=== PATIENT | female | born 1945 | race Caucasian/White ===

== ENCOUNTER 2019-11-03 23:50 | Inpatient (IN) | payer MEDICARE, OTHER ==
[~2019-11-03] VITALS: Ht 149.9 cm; Wt 94.2 kg
[2019-11-04] VITALS (7 sets, daily range): BP systolic 91–136; BP diastolic 41–68
[2019-11-04] MEDS ORDERED: ONDANSETRON HCL 4 MG/2 ML VIAL IV PRN (00:45)
[2019-11-04] MEDS ORDERED: DEXTROSE (50%) 50ML SYRG IV PRN (00:45)
[2019-11-04] MEDS ORDERED: NITROGLYCERIN 0.4 MG SL TAB SL PRN (00:45)
[2019-11-04] MEDS ORDERED: ACETAMINOPHEN 325 MG TAB PO PRN (00:45)
[2019-11-04] MEDS ORDERED: MORPHINE SULF INJ 2 MG/ML SYRINGE 1ML IV PRN (00:45)
[2019-11-04 02:47] LABS: Basophils # (auto) 0 10 ^3/uL (0-0.2); Basophils % (auto) 0.4 % (0.0-2.0); Eosinophils # (auto) 0.1 10 ^3/uL (0-0.8); Hematocrit 36.6 % (36.0-46.0); Hemoglobin 12.1 g/dL (12.2-16.2); Lymphocytes # (auto) 3.4 10 ^3/uL (0.4-5.4); Lymphocytes % (auto) 34.6 % (10.0-50.0); Mean Corpuscular Hemoglobin 32.2 pg (28.0-32.0); Mean Corpuscular Volume 97.6 fL (80.0-100.0); Monocytes # (auto) 0.8 10 ^3/uL (0-1.3); Monocytes % (auto) 8.4 % (0.0-12.0); Neutrophils # (auto) 5.4 10 ^3/uL (1.6-8.6); Neutrophils % (auto) 55.6 % (37.0-80.0); Platelet Count (auto) 206 10^3/uL (140-450); Red Blood Cells 3.75 10^6/uL (4.0-5.20); Red Cell Distribution Width 13.6 % (11.8-14.3); White Blood Cell 9.7 10^3/uL (4.4-10.8)
[2019-11-04 03:01] LABS: BUN/Creatinine Ratio 23.6; Calcium 8.7 mg/dL (8.5-10.1); Potassium 3.5 mmol/L (3.5-5.1)
[2019-11-04] MEDS: InsuLIN REG 1unit/0.01ml Soln (100units/ml) SC SCH ×5 (04:00→20:00)
[2019-11-04] MEDS: SODIUM CHLORIDE 0.9% 1,000 ML IV SCH ×2 (04:44→15:26)
[2019-11-04] MEDS: ACCU-CHEK COMFORT CURVE STRIP VI SCH ×5 (04:45→20:57)
[2019-11-04] MEDS: LEVOTHYROXINE SODIUM 112 MCG TAB PO SCH (07:17)
[2019-11-04 07:45] LABS: Basophils # (auto) 0 10 ^3/uL (0-0.2); Basophils % (auto) 0.3 % (0.0-2.0); Eosinophils # (auto) 0.1 10 ^3/uL (0-0.8); Hematocrit 38.2 % (36.0-46.0); Hemoglobin 12.8 g/dL (12.2-16.2); Lymphocytes # (auto) 3.5 10 ^3/uL (0.4-5.4); Lymphocytes % (auto) 31.5 % (10.0-50.0); Mean Corpuscular Hemoglobin 32.3 pg (28.0-32.0); Mean Corpuscular Hgb Conc. 33.4 g/dL (32.0-36.0); Mean Corpuscular Volume 96.8 fL (80.0-100.0); Monocytes # (auto) 0.9 10 ^3/uL (0-1.3); Monocytes % (auto) 8.4 % (0.0-12.0); Neutrophils # (auto) 6.5 10 ^3/uL (1.6-8.6); Neutrophils % (auto) 58.8 % (37.0-80.0); Nucleated Red Blood Cells % 0.1 %; Platelet Count (auto) 223 10^3/uL (140-450); Red Blood Cells 3.94 10^6/uL (4.0-5.20); Red Cell Distribution Width 13.2 % (11.8-14.3)
[2019-11-04 08:01] LABS: Calcium 8.7 mg/dL (8.5-10.1); Magnesium 2.5 mg/dL (1.6-2.6); Potassium 3.9 mmol/L (3.5-5.1)
[2019-11-04 08:05] LABS: BUN/Creatinine Ratio 21.3
[2019-11-04 09:29] LABS: Urine Bacteria FEW /hpf (None Seen); Urine Blood TRACE /uL (Negative); Urine Mucus FEW (None Seen); Urine Specific Gravity 1.023 (1.001-1.035); Urine WBC 31 /hpf (0 - 5)
[2019-11-04] MEDS: DOCUSATE SOD 100 MG CAP PO SCH (10:00)
[2019-11-04] MEDS ORDERED: CLOPIDOGREL BISULFATE 75 MG TAB PO SCH (10:00)
[2019-11-04] MEDS ORDERED: ENOXAPARIN SOD 60 MG/0.6 ML SYRINGE SC SCH (10:00)
[2019-11-04] MEDS ORDERED: VERAPAMIL 2.5MG/ML INJ 2ML VIAL IV ONE (10:43)
[2019-11-04] MEDS ORDERED: ANGIOMAX 250 MG VIAL IV ONE (10:43)
[2019-11-04] MEDS ORDERED: HEPARIN SODIUM (PORCINE) 5000 UNITS/ML 1ML VIAL ONE (10:43)
[2019-11-04] MEDS ORDERED: IODIXANOL 320MG/ML 100ML BTL IV ONE (10:44)
[2019-11-04] MEDS ORDERED: LIDOCAINE 2%HCL (LOCAL ANESTH.) INJ 20ML MDV ONE (10:44)
[2019-11-04] MEDS ORDERED: HEPARIN IN NS 1000Units/500mL 1,500 ML ONE (10:44)
[2019-11-04] MEDS ORDERED: fentaNYL CITRATE 100 MCG/2 ML VL ONE (10:44)
[2019-11-04] MEDS ORDERED: SODIUM CHL 0.9% 50 ML ONE (10:44)
[2019-11-04] MEDS ORDERED: MIDAZOLAM HCL 1MG/1ML-2 ML VIAL ONE (10:44)
[2019-11-04] MEDS: CARVEDILOL 3.125 MG TAB PO SCH ×2 (10:52→22:00)
[2019-11-04] MEDS: ASPirin 81 mg TAB PO SCH (10:52)
[2019-11-04] MEDS: LISINOPRIL 20 MG TAB PO SCH (10:53)
[2019-11-04] MEDS ORDERED: TICAGRELOR 90 MG TAB ONE (11:53)
[2019-11-04 13:55] LABS: INR 1.71 (0.9-1.15); Partial Thromboplastin Time 60.8 sec (23.64-32.05)
[2019-11-04] MEDS ORDERED: PRAV20TA3 PO (18:53)
[2019-11-04] MEDS ORDERED: LEVO100T8 PO (18:53)
[2019-11-04] MEDS ORDERED: CLOPIDOGREL 300 MG TAB PO ONE (20:00)
[2019-11-04] MEDS: ATORVASTATIN 20 MG TAB PO SCH (22:20)
[2019-11-05] MEDS: ACCU-CHEK COMFORT CURVE STRIP VI SCH ×7 (00:16→23:39)
[2019-11-05] MEDS: InsuLIN REG 1unit/0.01ml Soln (100units/ml) SC SCH ×7 (04:00→23:39)
[2019-11-05] MEDS: SODIUM CHLORIDE 0.9% 1,000 ML IV SCH ×2 (04:16→16:50)
[2019-11-05 05:00] VITALS: BP 104/54
[2019-11-05] MEDS: LEVOTHYROXINE SODIUM 112 MCG TAB PO SCH (06:29)
[2019-11-05 08:00] VITALS: BP 88/50
[2019-11-05] MEDS: DOCUSATE SOD 100 MG CAP PO SCH (10:00)
[2019-11-05] MEDS: LISINOPRIL 20 MG TAB PO SCH (10:00)
[2019-11-05] MEDS: CARVEDILOL 3.125 MG TAB PO SCH ×2 (10:00→21:57)
[2019-11-05] MEDS: SPIRONOLACTONE 25 MG TAB PO SCH (11:17)
[2019-11-05] MEDS: ASPirin 81 mg TAB PO SCH (11:17)
[2019-11-05] MEDS: CLOPIDOGREL BISULFATE 75 MG TAB PO SCH (11:17)
[2019-11-05] MEDS: levoFLOXacin 500MG 100 ML IV SCH (12:36)
[2019-11-05 17:04] VITALS: BP 112/54
[2019-11-05 21:26] VITALS: BP 121/58
[2019-11-05] MEDS: ATORVASTATIN 20 MG TAB PO SCH (21:57)
[2019-11-06] MEDS: ACCU-CHEK COMFORT CURVE STRIP VI SCH ×3 (03:31→12:00)
[2019-11-06] MEDS: InsuLIN REG 1unit/0.01ml Soln (100units/ml) SC SCH ×3 (03:32→12:00)
[2019-11-06 04:54] VITALS: BP 109/57
[2019-11-06 06:09] LABS: Basophils # (auto) 0 10 ^3/uL (0-0.2); Basophils % (auto) 0.6 % (0.0-2.0); Eosinophils # (auto) 0.2 10 ^3/uL (0-0.8); Eosinophils % (auto) 1.9 % (0.0-7.0); Hematocrit 34.7 % (36.0-46.0); Hemoglobin 11.5 g/dL (12.2-16.2); Lymphocytes # (auto) 2.6 10 ^3/uL (0.4-5.4); Lymphocytes % (auto) 32.2 % (10.0-50.0); Mean Corpuscular Hemoglobin 32.7 pg (28.0-32.0); Mean Corpuscular Hgb Conc. 33.2 g/dL (32.0-36.0); Mean Corpuscular Volume 98.4 fL (80.0-100.0); Monocytes # (auto) 0.8 10 ^3/uL (0-1.3); Monocytes % (auto) 9.9 % (0.0-12.0); Neutrophils # (auto) 4.4 10 ^3/uL (1.6-8.6); Neutrophils % (auto) 55.4 % (37.0-80.0); Nucleated Red Blood Cells % 0.1 %; Platelet Count (auto) 198 10^3/uL (140-450); Red Blood Cells 3.53 10^6/uL (4.0-5.20)
[2019-11-06 06:29] LABS: Potassium 3.8 mmol/L (3.5-5.1)
[2019-11-06] MEDS: LEVOTHYROXINE SODIUM 112 MCG TAB PO SCH (06:29)
[2019-11-06] MEDS: SODIUM CHLORIDE 0.9% 1,000 ML IV SCH (06:29)
[2019-11-06 06:44] LABS: Albumin 3.1 g/dL (3.4-5.0); BUN/Creatinine Ratio 18.6; Bilirubin, Total 0.5 mg/dL (0.2-1.0); Calcium 8.3 mg/dL (8.5-10.1); Magnesium 2.5 mg/dL (1.6-2.6); Total Protein 6.7 g/dL (6.4-8.2)
[2019-11-06 08:00] VITALS: BP 127/66
[2019-11-06 08:30] VITALS: BP 127/66
[2019-11-06] MEDS: DOCUSATE SOD 100 MG CAP PO SCH (10:00)
[2019-11-06] MEDS: LISINOPRIL 20 MG TAB PO SCH (10:00)
[2019-11-06] MEDS: ASPirin 81 mg TAB PO SCH (10:11)
[2019-11-06] MEDS: CARVEDILOL 3.125 MG TAB PO SCH (10:13)
[2019-11-06] MEDS: CLOPIDOGREL BISULFATE 75 MG TAB PO SCH (10:14)
[2019-11-06] MEDS: SPIRONOLACTONE 25 MG TAB PO SCH (10:14)
[2019-11-06] MEDS: levoFLOXacin 500MG 100 ML IV SCH (10:15)
[2019-11-06 12:14] VITALS: BP 127/66
[2019-11-06 12:37] VITALS: BP 94/55
== END 2019-11-06 14:15 | disposition home or self-care (01) | DRG 246 ==
LOC: TELE-WESTW 23:50
PROVIDERS: ADMIT Hospitalist; ATTEND Family Medicine
PROC: B2111ZZ Fluoroscopy of Multiple Coronary Arteries using Low Osmolar Contrast (ICD-10-PCS; principal; 2019-11-04)
PROC: 027034Z Dilation of Coronary Artery, One Artery with Drug-eluting Intraluminal Device, Percutaneous Approach (ICD-10-PCS; 2019-11-04)
PROC: 4A023N7 Measurement of Cardiac Sampling and Pressure, Left Heart, Percutaneous Approach (ICD-10-PCS; 2019-11-04)
DX: I21.4 Non-ST elevation (NSTEMI) myocardial infarction (principal); I50.43 Acute on chronic combined systolic (congestive) and diastolic (congestive) heart failure; N39.0 Urinary tract infection, site not specified; Z68.41 Body mass index [BMI] 40.0-44.9, adult; I25.10 Atherosclerotic heart disease of native coronary artery without angina pectoris; E03.9 Hypothyroidism, unspecified; I95.9 Hypotension, unspecified; E66.9 Obesity, unspecified; Z82.49 Family history of ischemic heart disease and other diseases of the circulatory system; E78.5 Hyperlipidemia, unspecified; Z90.89 Acquired absence of other organs; Z98.51 Tubal ligation status; I11.0 Hypertensive heart disease with heart failure
CPT/HCPCS: 36415; 80048; 80053; 80061; 81001; 82962; 83036; 83735; 84443; 84484; 85025; 85610; 85730; 87086; 87088; 87186; 92928; 93306; 93458; 99152; 99153; C1874; G0378; J1956; J2250; Q9967

== ENCOUNTER → 2023-09-13 | Day surgery (SDC) | payer MEDICARE, OTHER ==
[2023-09-10 10:48] LABS: Basophils # (auto) 0.1 10 ^3/uL (0-0.2); Basophils % (auto) 0.6 % (0.0-2.0); Eosinophils # (auto) 0.2 10 ^3/uL (0-0.8); Hematocrit 36.1 % (36.0-46.0); Hemoglobin 12.2 g/dL (12.2-16.2); Lymphocytes # (auto) 2.1 10 ^3/uL (0.4-5.4); Lymphocytes % (auto) 24.2 % (10.0-50.0); Mean Corpuscular Hemoglobin 32.5 pg (28.0-32.0); Mean Corpuscular Hgb Conc. 33.7 g/dL (32.0-36.0); Mean Corpuscular Volume 96.6 fL (80.0-100.0); Monocytes # (auto) 0.6 10 ^3/uL (0-1.3); Monocytes % (auto) 7.3 % (0.0-12.0); Neutrophils # (auto) 5.7 10 ^3/uL (1.6-8.6); Neutrophils % (auto) 65.9 % (37.0-80.0); Red Blood Cells 3.74 10^6/uL (4.0-5.20); White Blood Cell 8.7 10^3/uL (4.4-10.8)
[2023-09-10 10:59] LABS: Alanine Aminotransferase 12 U/L (7-40); Albumin 4.6 g/dL (3.2-4.8); Alkaline Phosphatase 99 U/L (46-116); Anion Gap 11 (5-15); Aspartate Aminotransferase 17 U/L (13-40); BUN/Creatinine Ratio 20.2 (10.0-20.0); Bilirubin, Total 0.4 mg/dL (0.2-1.0); Blood Urea Nitrogen 19 mg/dL (9-23); Calcium 9.7 mg/dL (8.5-10.1); Carbon Dioxide 22 mmol/L (20-30); Chloride 107 mmol/L (98-107); Glucose 111 mg/dL (74-106); Potassium 4.1 mmol/L (3.5-5.1); Sodium 140 mmol/L (136-145); Total Protein 7.2 g/dL (5.7-8.2)
[2023-09-10 12:09] LABS: Urine Bacteria MOD /hpf (None Seen); Urine Blood Negative /uL (Negative); Urine Hyaline Cast FEW /lpf (0 - 2); Urine Mucus FEW (None Seen); Urine Protein, UAD TRACE (Negative); Urine Specific Gravity 1.021 (1.001-1.035); Urine Urobilinogen Normal (Negative); Urine WBC 17 /hpf (0 - 5); Urine pH 5.5 (5.0-9.0)
[2023-09-10 12:14] LABS: Urine Clarity CLOUDY (Clear); Urine Color Yellow (Yellow)
[2023-09-10 12:19] LABS: INR 0.98 (0.9-1.15); Partial Thromboplastin Time 28.2 SEC (24.5-34.5); Prothrombin Time 10.3 sec (9.3-11.8)
[~2023-09-13] VITALS: Ht 149.9 cm; Wt 83.9 kg
[~2023-09-13] MED LIST: BEMP1TAB PO; BUPIVACAINE 0.25% INJ 50ML VIAL ONE; CARV25TA55 PO; CHOL20004 PO; CLOP75TA28 PO; COEN200C25 PO; DOXAPRAM HCL 20 MG/ML 20ML VIAL INJ IV ONE; DexAMETHasone SOD PHOS 10MG/1ML VIAL INJ ONE; GLYCOPYRROLATE 0.2 MG/ML 1ML VIAL ONE; KETAMINE 50mg/ML 1ml syringe ONE; LACTCAP35 OR; LEVO88CA3 PO; LIDOCAINE 1% INJ PF 5ML AMP ONE; LIDOCAINE 1%-Mpf/Epinephrine 1:200,000 30ml VIAL ONE; LIDOCAINE 2% JELLY 11ml (GLYDO) ONE; MEPERIDINE HCL (25 MG/ML) 1ML VIAL ONE; METHYLENE BLUE 0.5% 5MG/ML 10ml AMP IV ONE; MIDAZOLAM HCL 2MG/2ML 2ml VIAL (1mg/ml) ONE; NEOSTIGMINE 1 MG/ML INJ (10mg/10ML VIAL) ONE; ONDANSETRON HCL 4 MG/2 ML VIAL ONE; PRAV20TA3 PO; PROG200C21 PO; PROPOFOL 10 MG/ML 20 ML IV ONE; ROCURONIUM 10MG/ML 10ML VIAL IV ONE; SODIUM CHLORIDE LOCK 40 ML ONE; SPIR25TA8 PO; SUCCINYLCHOLINE CHLORIDE 20 MG/ML 10ML VIAL IV ONE; TURM500C3 OR; ceFAZolin 2 GM/D5W50ml 50 ML IV ONE; fentaNYL CITRATE 0 ML ONE; fentaNYL CITRATE 100 MCG/2 ML VL ONE
== END | disposition home or self-care (01) ==
LOC: SUR 06:01
PROVIDERS: ATTEND Obstetrics & Gynecology
DX: N95.2 Postmenopausal atrophic vaginitis (principal); Z53.8 Procedure and treatment not carried out for other reasons; N81.11 Cystocele, midline; N39.3 Stress incontinence (female) (male); E66.9 Obesity, unspecified; Z68.37 Body mass index [BMI] 37.0-37.9, adult; Z98.890 Other specified postprocedural states; Z82.49 Family history of ischemic heart disease and other diseases of the circulatory system
CPT/HCPCS: 36415; 80053; 81001; 85025; 85610; 85730; 86850; 86900; 86901; 87086; 87088; 87186; J0330; J0690; J2001; J2405; J3490; Q9968; J1100; J2250; J2704